=== PATIENT | male | born 1965 | race Two or more races ===

== ENCOUNTER 2022-12-13 13:02 | Emergency (ER) | payer OTHER ==
[~2022-12-13] VITALS: Ht 172.7 cm; Wt 88.5 kg
[2022-12-13] MEDS ORDERED: ZESTRIL20 MG (13:27)
[2022-12-13] MEDS ORDERED: HYDRODIURIL12.5 MG (13:28)
[2022-12-13] MEDS ORDERED: GLUMETZA500 MG (13:28)
== END 2022-12-13 16:29 | disposition home or self-care (01) ==
LOC: ER 13:02
DX: R42 Dizziness and giddiness (principal); I10 Essential (primary) hypertension; E11.9 Type 2 diabetes mellitus without complications; Z79.84 Long term (current) use of oral hypoglycemic drugs